=== PATIENT | male | born 1950 | race African-American/Black ===

== ENCOUNTER 2020-11-23 18:16 | Emergency (ER) | payer OTHER, BC ==
[~2020-11-23] VITALS: Ht 180.3 cm; Wt 79.4 kg
[~2020-11-23 18:16] MED LIST: ACYCLOVIR 400400 MG PO; ALLOPURINOL 30300 M2 PO; AMBIEN 5 MG TABL5 M1 PO; ATIVAN0.5 MG PO; BACTRIM DS TAB1 EACH PO; BENADRYL25 MG PO; BENTYL 10 MG CA10 MG PO; BENTYL PO; BENTYL20 MG PO; CARAFATE 1 GM TA1 G1 PO; CHLORPROMAZINE25 M1 PO; COZAAR 50 MG TA50 M2 PO; CYCLOBENZAPRINE10 MG PO; FAMVIR250 MG PO; FLOMAX PO; FOLATE; FOLIC ACID1 MG PO; HYDROCODON-ACE1 EAC7 PO; MACROBID 100 M100 M1 PO; MAG-AL PLUS SUS30 ML PO; METOCLOPRAMIDE10 MG PO; MICROZIDE12.5 MG PO; OMEPRAZOLE 20 M20 M1 PO; ONDANSETRON HCL4 M2 PO; OXAZEPAM 10MG C10 M1 PO; PREDNISONE 10 M10 M1 PO; PREDNISONE 20 M20 MG PO; PRINZIDE 20-121 EACH PO; PRINZIDE 20-251 EACH PO; PROTONIX IV40 MG PO; PROTONIX40 M1 PO; TAMSULOSIN HCL0.4 M1 PO; TYLENOL325 MG PO; VERAMYST10 GM NASAL; VIAGRA100 MG PO; ZOFRAN4 MG PO
[2020-11-23 19:20] LABS: ABSOLUTE NEUTROPHILS 9.8 thou/uL (1.4-8.2); BASOPHILS 0.5 % (0.0-2.0); HEMATOCRIT 40.8 % (42.0-52.0); HEMOGLOBIN 13.1 gm/dL (14.0-18.0); LYMPHOCYTES 45.2 % (24.0-44.0); MCH 26.4 pg (26.0-34.0); MCHC 32.1 g/dL (28.0-37.0); MCV 82.4 fL (80.0-100.0); MONOCYTES 3.6 % (1.0-8.0); PLATELET COUNT 185 thou/uL (150-400); POLYS 50.7 % (36.0-66.0); RBC 4.95 mil/uL (4.50-6.00); RDW 14.6 % (10.5-14.5); URINE BILIRUBIN NEGATIVE (Negative); URINE BLOOD 3+ (Negative); URINE CLARITY CLEAR; URINE COLOR YELLOW; URINE GLUCOSE-RANDOM* NEGATIVE (Negative); URINE KETONES NEGATIVE (Negative); URINE LEUKOCYTES-REFLEX NEGATIVE (Negative); URINE PROTEIN (DIPSTICK) NEGATIVE (Negative); URINE UROBILINOGEN 0.2 E.U./dl (0.2-1.0); WBC 19.4 thou/uL (4.0-11.0)
[2020-11-23 19:26] LABS: URINE NITRITE-REFLEX POSITIVE (Negative)
[2020-11-23 19:33] LABS: ANION GAP 11 mmol/L (7-16); BUN 23 mg/dL (7-18); CALCIUM 9.8 mg/dL (8.5-10.1); CHLORIDE 102 mmol/L (98-107); CO2 28 mmol/L (21-32); CREATININE 1.8 mg/dL (0.7-1.3); GLUCOSE 114 mg/dL (74-106); POTASSIUM 3.3 mmol/L (3.5-5.1); SODIUM 141 mmol/L (136-145)
[2020-11-23 19:34] LABS: CASTS None Seen /LPF (None Seen); SQUAMOUS 0-3 Few /LPF (0-3); URINE WBC-REFLEX 0-5 Rare /HPF (0-5)
[2020-11-23 19:35] LABS: CRYSTALS None Seen /LPF (None Seen); URINE RBC >20 Many /HPF (NONE SEEN)
[2020-11-23 19:43] LABS: ALBUMIN 3.7 g/dL (3.4-5.0); LIPASE 126 U/L (73-393); SGOT 21 U/L (15-37); SGPT 29 U/L (30-65); TOTAL BILIRUBIN 0.6 mg/dL (0.2-1.0); TOTAL PROTEIN 7.5 g/dL (6.4-8.2); TROPONIN-I <0.06 ng/mL (<0.06)
[2020-11-23] MEDS ORDERED: DULCOLAX STOOL100 M1 PO (20:01)
[2020-11-23] MEDS ORDERED: BACLOFEN 10MG T10 MG PO (20:01)
[2020-11-23] MEDS ORDERED: NORVASC5 MG PO (20:01)
[2020-11-23] MEDS ORDERED: COZAAR100 MG PO (20:02)
[2020-11-23] MEDS ORDERED: MACROBID 100 M100 M1 PO (20:02)
[2020-11-23] MEDS ORDERED: HYDROCHLOROTHIA25 M1 PO (20:02)
[2020-11-23] MEDS ORDERED: IMBRUVICA420 MG PO (20:03)
[2020-11-23] MEDS ORDERED: PROTONIX40 M2 PO (20:03)
[2020-11-23] MEDS ORDERED: IMBRUVICA280 MG PO (20:03)
[2020-11-23] MEDS ORDERED: ONDANSETRON ODT8 MG PO (20:04)
[2020-11-23 20:32] VITALS: BP 150/70
--- NOTE | 2020-11-24 13:11 | EKG ---
[place] [address] [email or web address] [address] ELECTROCARDIOGRAM REPORT Name: RICH JACOBSEN Room [id number] Admission: 11/23/20 Attend Phys: Discharge: 11/23/20 Date of : 46 Report #: [id number] [facility] ED Test Date: 2020-11-23 Test Time: 19:03:48 Pat Name: RICH JACOBSEN Department: Room: Gender: Automobile Mechanic Motor: NIMA : 1950 Requested By: Crystal Aldrich Order Number: [id number] MD: Paul Harman Measurements Intervals [place] Rate: 78 P: 43 VT: 177 QRS: -61 QRSD: 146 T: 41 QT: 418 QTc: 477 Interpretive Statements Sinus rhythm Ventricular bigeminy RBBB and LAFB Compared to ECG 05/28/2015 13:24:24 Electronically Signed On 11-24-2020 13:11:01 CDT by Paul Harman [email or web address] <ELECTRONICALLY SIGNED> By: Paul Harman MD 11/24/20 1311 1903 190 MD ALLEN Carlin
== END 2020-11-23 20:32 | disposition home or self-care (01) ==
LOC: ER 18:16
PROVIDERS: Emergency Medicine
DX: N39.0 Urinary tract infection, site not specified (principal); R11.2 Nausea with vomiting, unspecified; I10 Essential (primary) hypertension; Z91.011 Allergy to milk products; Z88.5 Allergy status to narcotic agent; Z88.6 Allergy status to analgesic agent; Z79.899 Other long term (current) drug therapy; Z98.890 Other specified postprocedural states; Z90.89 Acquired absence of other organs

== ENCOUNTER 2020-11-27 14:43 | Emergency (ER) | payer OTHER, BC ==
[~2020-11-27] VITALS: Ht 180.3 cm; Wt 79.4 kg
[~2020-11-27 14:43] MED LIST changes: +BACLOFEN 10MG T10 MG PO; +COZAAR100 MG PO; +DULCOLAX STOOL100 M1 PO; +HYDROCHLOROTHIA25 M1 PO; +IMBRUVICA280 MG PO; +IMBRUVICA420 MG PO; +NORVASC5 MG PO; +ONDANSETRON ODT8 MG PO; +PROTONIX40 M2 PO
[2020-11-27 16:25] LABS: ABSOLUTE NEUTROPHILS 8.4 thou/uL (1.4-8.2); BASOPHILS 0.6 % (0.0-2.0); EOSINOPHILS 0.3 % (0.0-3.0); HEMATOCRIT 42.2 % (42.0-52.0); HEMOGLOBIN 13.7 gm/dL (14.0-18.0); LYMPHOCYTES 47.6 % (24.0-44.0); MCH 26.9 pg (26.0-34.0); MCHC 32.5 g/dL (28.0-37.0); MCV 82.8 fL (80.0-100.0); MONOCYTES 5.1 % (1.0-8.0); PLATELET COUNT 204 thou/uL (150-400); POLYS 46.4 % (36.0-66.0); RDW 15.1 % (10.5-14.5); WBC 18.2 thou/uL (4.0-11.0)
[2020-11-27 16:34] LABS: CALCIUM 9.6 mg/dL (8.5-10.1); CREATININE 2.1 mg/dL (0.7-1.3)
[2020-11-27 16:40] LABS: ALBUMIN 3.8 g/dL (3.4-5.0); DIRECT BILIRUBIN 0.2 mg/dL (<0.1-0.2); MAGNESIUM 2.1 mg/dL (1.8-2.4); TOTAL BILIRUBIN 0.6 mg/dL (0.2-1.0); TOTAL PROTEIN 7.3 g/dL (6.4-8.2)
[2020-11-27 16:52] LABS: URINE BILIRUBIN NEGATIVE (Negative); URINE BLOOD TRACE (Negative); URINE CLARITY CLEAR; URINE COLOR YELLOW; URINE GLUCOSE-RANDOM* NEGATIVE (Negative); URINE KETONES NEGATIVE (Negative); URINE LEUKOCYTES-REFLEX NEGATIVE (Negative); URINE NITRITE-REFLEX NEGATIVE (Negative); URINE PROTEIN (DIPSTICK) NEGATIVE (Negative); URINE SPECIFIC GRAVITY 1.015 (1.005-1.035); URINE UROBILINOGEN 0.2 E.U./dl (0.2-1.0)
[2020-11-27 16:53] LABS: POTASSIUM 2.9 mmol/L (3.5-5.1)
[2020-11-27] MEDS ORDERED: ZOFRAN ODT4 MG PO (18:56)
[2020-11-27 19:06] VITALS: BP 156/76
--- NOTE | 2020-11-28 07:11 | EKG ---
[facility] [place] [address] ELECTROCARDIOGRAM REPORT Name: RICH JACOBSEN [facility] [id number] Admission: 11/27/20 Attend Phys: Discharge: 11/27/20 Date of : 46 Report #: [id number] [facility] ED Test Date: 2020-11-27 Test Time: 15:34:54 Pat Name: RICH JACOBSEN Department: Room: Gender: M Patient Partner: MPARK : 1950 Requested By: Ayla Espinoza Order Number: [id number] MD: Parmjit Yu Measurements Intervals [place] Rate: 82 P: 56 NE: 174 QRS: -71 QRSD: 149 T: 40 QT: 401 QTc: 469 Interpretive Statements Sinus rhythm Probable left atrial enlargement RBBB and LAFB Compared to ECG 11/23/2020 19:03:48 Ventricular premature complex(es) no longer present Electronically Signed On 11-28-2020 7:11:34 CDT by Parmjit Yu [email or web address] <ELECTRONICALLY SIGNED> By: Parmjit Yu MD, [facility] 11/28/20 0711 1534 33 Parmjit Yu MD, FACC /EPI
== END 2020-11-27 19:06 | disposition home or self-care (01) ==
LOC: ER 14:43
PROVIDERS: Emergency Medicine
DX: E86.0 Dehydration (principal); Z20.822 Contact with and (suspected) exposure to COVID-19; C91.10 Chronic lymphocytic leukemia of B-cell type not having achieved remission; R53.1 Weakness; N17.9 Acute kidney failure, unspecified; E87.6 Hypokalemia; I10 Essential (primary) hypertension; Z91.011 Allergy to milk products; Z88.6 Allergy status to analgesic agent; Z88.5 Allergy status to narcotic agent; Z79.899 Other long term (current) drug therapy; Z90.89 Acquired absence of other organs